=== PATIENT | male | born 1955 | race Caucasian/White ===

== ENCOUNTER 2022-07-18 14:45 | Inpatient (IN) | payer MEDICARE, OTHER ==
[~2022-07-18] VITALS: Ht 170.2 cm; Wt 78.4 kg
[~2022-07-18 14:45] MED LIST: ASPI81TA86 PO; FIBE625T PO; METF10004 PO; ZOCO40TA PO
[2022-07-18 18:29] LABS: BASO % 0.2 % (0.0-1.0); HEMATOCRIT 44.5 % (42.0-52.0); HEMOGLOBIN 15.7 g/dl (13.5-17.5); LYMPH # 1.2 10^3/uL (1.5-5.0); LYMPH % 13.6 % (24.0-44.0); MEAN CORPUSCULAR HEMOGLOBIN 31.9 pg (27.0-33.0); MEAN CORPUSCULAR HGB CONC 35.3 g/dl (32.0-36.5); MEAN CORPUSCULAR VOLUME 90.4 fl (80.0-96.0); MONO % 11.5 % (2.0-8.0); NEUTROPHILS # 6.7 10^3/uL (1.5-8.5); NEUTROPHILS % 73.7 % (36.0-66.0); PLATELET COUNT, AUTOMATED 265 10^3/uL (150-450); RED BLOOD COUNT 4.92 10^6/uL (4.30-6.10)
[2022-07-18] MEDS ORDERED: JARD1TAB3 PO (18:40)
[2022-07-18] MEDS ORDERED: ENAL-36 PO (18:40)
[2022-07-18] MEDS ORDERED: METF500T13 PO (18:40)
[2022-07-18] MEDS ORDERED: NS 1,000 ML IV ONE (18:45)
[2022-07-18 19:03] LABS: RSV AMPLIFICATION NEGATIVE (NEGATIVE)
[2022-07-18 19:17] LABS: ALBUMIN 3.4 GM/DL (3.2-5.2); BILIRUBIN,DIRECT 0.3 MG/DL (0.0-0.2); BILIRUBIN,TOTAL 1.1 MG/DL (0.2-1.0); CALCIUM LEVEL 8.8 MG/DL (8.8-10.2); CREATININE FOR GFR 2.32 MG/DL (0.70-1.30); FREE T4 1.7 NG/DL (0.76-1.46); GLOMERULAR FILTRATION RATE 30.1 (>49); POTASSIUM SERUM 4.6 MEQ/L (3.5-5.1); THYROID STIMULATING HORMONE 0.822 uIU/ML (0.358-3.740); TOTAL PROTEIN 7.2 GM/DL (6.4-8.2)
[2022-07-18] MEDS ORDERED: ASPI81TA26 PO (19:55)
[2022-07-18] MEDS ORDERED: HOME MED LIST COMPLETE! XX SCH (19:55)
[2022-07-18] MEDS: INSULIN LISPRO (NovoLOG) PER UNIT SC SCH (21:00)
[2022-07-18] MEDS ORDERED: GLUCOSE 4GM CHEW TABLET PO PRN (21:35)
[2022-07-18] MEDS ORDERED: DEXTROSE 50% 50 ML SYRINGE IV PRN (21:35)
[2022-07-18] MEDS ORDERED: GLUCAGON INJ 1MG VIAL SC PRN (21:35)
[2022-07-19] VITALS (16 sets, daily range): BP systolic 113–137; BP diastolic 63–78; O2SAT 94–97
[2022-07-19] MEDS ORDERED: ACETAMINOPHEN TAB 650MG DOSE (2X325MG) PO PRN (06:40)
[2022-07-19] MEDS: INSULIN LISPRO (NovoLOG) PER UNIT SC SCH ×4 (07:25→20:55)
[2022-07-19 07:30] LABS: BASO % 0.1 % (0.0-1.0); HEMATOCRIT 39.6 % (42.0-52.0); HEMOGLOBIN 14.2 g/dl (13.5-17.5); LYMPH # 0.9 10^3/uL (1.5-5.0); MEAN CORPUSCULAR HEMOGLOBIN 32.2 pg (27.0-33.0); MEAN CORPUSCULAR HGB CONC 35.9 g/dl (32.0-36.5); MEAN CORPUSCULAR VOLUME 89.8 fl (80.0-96.0); MONO # 0.8 10^3/uL (0.0-0.8); MONO % 11.4 % (2.0-8.0); NEUTROPHILS # 5.2 10^3/uL (1.5-8.5); NEUTROPHILS % 74.6 % (36.0-66.0); PLATELET COUNT, AUTOMATED 269 10^3/uL (150-450); RED BLOOD COUNT 4.41 10^6/uL (4.30-6.10); WHITE BLOOD COUNT 6.9 10^3/uL (4.0-10.0)
[2022-07-19] MEDS ORDERED: NS 500 ML IV ONE (08:15)
[2022-07-19] MEDS: NS 1,000 ML IV SCH ×2 (08:38→15:09)
[2022-07-19 08:39] LABS: CALCIUM LEVEL 8.7 MG/DL (8.8-10.2); CREATININE FOR GFR 1.54 MG/DL (0.70-1.30); FREE T4 1.73 NG/DL (0.76-1.46); GLOMERULAR FILTRATION RATE 48.4 (>49); MAGNESIUM LEVEL 2.5 MG/DL (1.8-2.4); PHOSPHORUS LEVEL 3.2 MG/DL (2.5-4.9); POTASSIUM SERUM 3.9 MEQ/L (3.5-5.1); THYROID STIMULATING HORMONE 0.341 uIU/ML (0.358-3.740)
[2022-07-19 09:18] LABS: CK-MB VALUE MASS < 1.0 NG/ML (<3.6); CPK CREATINE PHOSPHOKINASE 93 U/L (39-308); MB/CK RELATIVE INDEX 1.08 (< OR =4)
[2022-07-19] MEDS ORDERED: METOPROLOL 5 MG/5 ML VIAL IV STA (09:24)
[2022-07-19] MEDS ORDERED: ENOXAPARIN 80MG/0.8ML SYRINGE (J1650 PER 10MG) SC SCH (10:00)
[2022-07-19] MEDS: METOPROLOL TART 25 MG TABLET PO SCH ×3 (10:18→21:46)
[2022-07-19 13:09] LABS: CALCIUM LEVEL 8.2 MG/DL (8.8-10.2); CREATININE FOR GFR 1.49 MG/DL (0.70-1.30); GLOMERULAR FILTRATION RATE 50.2 (>49)
[2022-07-19 13:13] LABS: CK-MB VALUE MASS < 1.0 NG/ML (<3.6); CPK CREATINE PHOSPHOKINASE 104 U/L (39-308); MB/CK RELATIVE INDEX 0.96 (< OR =4)
[2022-07-19] MEDS ORDERED: METOPROLOL TART 12.5 MG PER 1/2 TAB PO SCH (15:30)
[2022-07-19 16:11] LABS: CK-MB VALUE MASS < 1.0 NG/ML (<3.6); CPK CREATINE PHOSPHOKINASE 102 U/L (39-308); MB/CK RELATIVE INDEX 0.98 (< OR =4)
[2022-07-19 18:37] LABS: CALCIUM LEVEL 8.2 MG/DL (8.8-10.2); CREATININE FOR GFR 1.4 MG/DL (0.70-1.30); POTASSIUM SERUM 3.7 MEQ/L (3.5-5.1)
[2022-07-19] MEDS: APIXABAN 5 MG TAB (ELIQUIS) PO SCH (21:46)
[2022-07-20] VITALS (11 sets, daily range): BP systolic 111–130; BP diastolic 59–70; O2SAT 93–97
[2022-07-20 00:18] LABS: CALCIUM LEVEL 7.9 MG/DL (8.8-10.2); CREATININE FOR GFR 1.29 MG/DL (0.70-1.30); GLOMERULAR FILTRATION RATE 59.3 (>49); POTASSIUM SERUM 3.8 MEQ/L (3.5-5.1)
[2022-07-20] MEDS: NS 1,000 ML IV SCH (00:39)
[2022-07-20] MEDS: METOPROLOL TART 25 MG TABLET PO SCH ×2 (03:24→09:26)
[2022-07-20 04:33] LABS: BASO % 0.1 % (0.0-1.0); HEMATOCRIT 38.2 % (42.0-52.0); HEMOGLOBIN 13.3 g/dl (13.5-17.5); LYMPH # 1.1 10^3/uL (1.5-5.0); LYMPH % 16.1 % (24.0-44.0); MEAN CORPUSCULAR HEMOGLOBIN 31.9 pg (27.0-33.0); MEAN CORPUSCULAR HGB CONC 34.8 g/dl (32.0-36.5); MEAN CORPUSCULAR VOLUME 91.6 fl (80.0-96.0); MONO # 0.8 10^3/uL (0.0-0.8); MONO % 11.8 % (2.0-8.0); NEUTROPHILS # 4.8 10^3/uL (1.5-8.5); NEUTROPHILS % 71.4 % (36.0-66.0); PLATELET COUNT, AUTOMATED 299 10^3/uL (150-450); RED BLOOD COUNT 4.17 10^6/uL (4.30-6.10); WHITE BLOOD COUNT 6.7 10^3/uL (4.0-10.0)
[2022-07-20 05:09] LABS: BLOOD UREA NITROGEN 33 MG/DL (7-18); CALCIUM LEVEL 7.8 MG/DL (8.8-10.2); CARBON DIOXIDE LEVEL 20 MEQ/L (21-32); CHLORIDE LEVEL 105 MEQ/L (98-107); CHOLESTEROL LEVEL 98 MG/DL (<200); CHOLESTEROL RISK RATIO 3.266 (<5); CREATININE FOR GFR 1.08 MG/DL (0.70-1.30); GLOMERULAR FILTRATION RATE > 60.0 (>49); GLUCOSE, FASTING 104 MG/DL (70-100); HDL CHOLESTEROL 30 MG/DL (>40); LDL CHOLESTEROL 48 MG/DL (<100); MAGNESIUM LEVEL 2.1 MG/DL (1.8-2.4); NON-HDL-C 68 MG/DL; POTASSIUM SERUM 3.7 MEQ/L (3.5-5.1); SODIUM LEVEL 135 MEQ/L (136-145); TRIGLYCERIDES LEVEL 101 MG/DL (<150)
[2022-07-20] MEDS: INSULIN LISPRO (NovoLOG) PER UNIT SC SCH ×2 (07:15→12:00)
[2022-07-20] MEDS ORDERED: diphenhydrAMINE 50MG/ML VIAL (J1200) IV PRN (08:40)
[2022-07-20] MEDS ORDERED: ALBUTEROL SULFATE 2.5 MG/0.5 ML INH NEB SOLN INH PRN (08:40)
[2022-07-20] MEDS ORDERED: EPINEPHrine INJ 1 MG/ML 1ML AMP IM PRN (08:40)
[2022-07-20] MEDS ORDERED: methylPREDNISolone 125MG 2ML VIAL IV PRN (08:40)
[2022-07-20] MEDS ORDERED: NS 1,000 ML IV SCH (08:40)
[2022-07-20] MEDS ORDERED: ALBUTEROL 90 MCG/ACT 8GM HFA INHALER INH PRN (08:40)
[2022-07-20] MEDS: APIXABAN 5 MG TAB (ELIQUIS) PO SCH (09:26)
[2022-07-20] MEDS ORDERED: METO25TA4 PO ×2 (10:35→13:48)
[2022-07-20] MEDS ORDERED: ELIQ5TAB PO ×2 (10:35→13:48)
[2022-07-20] MEDS ORDERED: BEBTELOVIMAB 175MG 2ML VIAL (EUA) IV ONE (11:00)
[2022-07-20] MEDS ORDERED: METOPROLOL TART 25 MG TABLET PO SCH (21:00)
== END 2022-07-20 13:42 | disposition home health service (06) | DRG 682 ==
LOC: M ED 14:45 → M ED INP 14:46 → ENRESERVDT 07-19 01:17 → ENRESERVTM 07-19 01:17 → M MSPAV 07-19 02:42 → OBSVTOIN 07-19 08:15 → M PCU 07-19 09:05
PROVIDERS: ADMIT Internal Medicine; ATTEND Internal Medicine
PROC: B246ZZZ Ultrasonography of Right and Left Heart (ICD-10-PCS; principal; 2022-07-19)
DX: N17.9 Acute kidney failure, unspecified (principal); U07.1 COVID-19; E87.1 Hypo-osmolality and hyponatremia; Z95.0 Presence of cardiac pacemaker; E11.22 Type 2 diabetes mellitus with diabetic chronic kidney disease; R79.89 Other specified abnormal findings of blood chemistry; Z79.82 Long term (current) use of aspirin; Z79.84 Long term (current) use of oral hypoglycemic drugs; Z79.899 Other long term (current) drug therapy; I48.91 Unspecified atrial fibrillation; E05.90 Thyrotoxicosis, unspecified without thyrotoxic crisis or storm; I12.9 Hypertensive chronic kidney disease with stage 1 through stage 4 chronic kidney disease, or unspecified chronic kidney disease; N18.30 Chronic kidney disease, stage 3 unspecified

== ENCOUNTER 2024-06-01 10:10 | Day surgery (SDC) | payer MEDICARE, OTHER ==
[~2024-06-01] VITALS: Ht 170.2 cm; Wt 80.8 kg
[~2024-06-01 10:10] MED LIST changes: +ASPI81TA26 PO; +ELIQ5TAB PO; +ENAL1TAB50 PO; +JARD1TAB3 PO; +METF500T13 PO; +METO25TA4 PO; +SIMV-254 PO; -ZOCO40TA PO
[2024-06-01] MEDS: NS 1,000 ML IV SCH (10:30)
[2024-06-01] MEDS ORDERED: propofoL 200 MG/20 ML VIAL As Ordered ONE (12:06)
[2024-06-01 12:38] VITALS: TEMP 97.7
[2024-06-01 12:55] VITALS: BP 140/81; O2SAT 95
== END 2024-06-01 13:02 | disposition home or self-care (01) ==
LOC: M OPP 10:10
PROVIDERS: ATTEND Internal Medicine Gastroenterology
DX: Z12.11 Encounter for screening for malignant neoplasm of colon (principal); Z86.010 Personal history of colon polyps; D12.2 Benign neoplasm of ascending colon; K64.0 First degree hemorrhoids; K57.30 Diverticulosis of large intestine without perforation or abscess without bleeding; I48.91 Unspecified atrial fibrillation; E11.9 Type 2 diabetes mellitus without complications; I10 Essential (primary) hypertension; Z79.01 Long term (current) use of anticoagulants; Z79.02 Long term (current) use of antithrombotics/antiplatelets; Z79.82 Long term (current) use of aspirin; Z79.84 Long term (current) use of oral hypoglycemic drugs; Z79.899 Other long term (current) drug therapy

== ENCOUNTER → 2025-01-10 | Outpatient (REF) | payer MEDICARE, OTHER | LOC: M LAB REF 18:06 | PROVIDERS: ATTEND Nurse Practitioner Adult Health | DX: E03.9 Hypothyroidism, unspecified (principal) ==

== ENCOUNTER → 2025-05-09 | Outpatient (CLI) | payer MEDICARE, OTHER | LOC: M RAD 15:48 | DX: I25.10 Atherosclerotic heart disease of native coronary artery without angina pectoris (principal); R06.2 Wheezing ==